=== PATIENT | male | born 1965 | race Caucasian/White ===

== ENCOUNTER 2018-09-22 22:36 | Observation (INO) ==
[2018-09-22] MEDS ORDERED: SODIUM CHLORIDE 0.9% 1,000 ML IV STA (23:44)
[2018-09-22] MEDS ORDERED: KETOROLAC 30 MG/1 ML VIAL IV STA (23:44)
[2018-09-22] MEDS ORDERED: PANTOPRAZOLE 40 MG VIAL IV STA (23:45)
[2018-09-23] LABS: Basophils # 0.1 10*3/uL (0.0-0.2); Eosinophils # 0.1 10*3/uL (0.0-0.87); Eosinophils % 1.6 % (0.00-10.9); Hematocrit 45.9 VOL% (42.0-52.0); Hemoglobin 15.8 GM/DL (14.0-18.0); Immature Granulocytes % 0.3 %; Immature Granulocytes Absolute 0.02 #; Lymphocytes # 0.9 10*3/uL (1.4-4.0); Lymphocytes % 13.7 % (21.2-54.2); Mean Corpuscular HGB Conc 34.4 GM/DL (32-36); Mean Corpuscular Volume 87.9 FL (87-102); Mean Platelet Volume 9.8 FL (9.6-12.0); Neutrophils % 77.4 % (38.7-73.9); Platelet Count 180 T/CUMM (130-400); Red Blood Count 5.22 MC/CUMM (3.8-5.5); Red Cell Distribution Width 11.9 % (9.3-17.3); White Blood Count 6.3 T/CUMM (4-12)
[2018-09-23 00:21] LABS: Albumin 4.2 G/DL (3.4-5.0); Calcium 9.4 MG/DL (8.5-10.1); Osmolality,Calculated 289.7 MOS/KG (273-304); Total Protein 6.8 G/DL (6.4-8.3)
[2018-09-23 02:25] LABS: Apearance,Urine CLEAR (Clear); Bilirubin,Urine Negative (Negative); Blood, Urine Negative (Negative); Glucose,Urine (UA) Negative (Negative); Ketones,Urine Negative (Negative); Mucus,Urine Occasional /LPF (Occasional); Nitrite,Urine Negative (Negative); Protein,Urine Negative; RBC,Urine 2 /HPF (0-4); Urine Color Yellow (Yellow); Urine Specific Gravity 1.055 (1.001-1.035); Urine Urobilinogen < 2.0 EU/DL (0.2-1.0); WBC,Urine <1 /HPF (0-6)
[2018-09-23] MEDS ORDERED: ACETAMINOPHEN 325 MG TABLET PO PRN (04:15)
[2018-09-23] MEDS ORDERED: PROMETHAZINE 25 MG/1 ML VIAL IM PRN (04:15)
[2018-09-23] MEDS ORDERED: ONDANSETRON 4 MG/2 ML VIAL IV PRN (04:15)
[2018-09-23] MEDS: HYDROmorphone 2 MG/1 ML VIAL IV PRN (05:10)
[2018-09-23] MEDS: PIPERACILLIN/TAZOBACTAM 3,375 MG in SODIUM CHLORIDE 0.9% 100 ML IV SCH ×3 (05:11→20:36)
[2018-09-23] MEDS: SODIUM CHLORIDE 0.9% 1,000 ML IV SCH ×2 (05:13→14:17)
[2018-09-24] MEDS: PIPERACILLIN/TAZOBACTAM 3,375 MG in SODIUM CHLORIDE 0.9% 100 ML IV SCH ×3 (03:45→20:25)
[2018-09-24] MEDS: SODIUM CHLORIDE 0.9% 1,000 ML IV SCH ×2 (03:54→16:18)
[2018-09-24 06:33] LABS: Basophils # 0.1 10*3/uL (0.0-0.2); Basophils % 0.9 % (0.0-0.8); Eosinophils # 0.3 10*3/uL (0.0-0.87); Eosinophils % 5.4 % (0.00-10.9); Hematocrit 41.6 VOL% (42.0-52.0); Hemoglobin 14.4 GM/DL (14.0-18.0); Immature Granulocytes % 0.2 %; Immature Granulocytes Absolute 0.01 #; Lymphocytes # 1.5 10*3/uL (1.4-4.0); Lymphocytes % 28.3 % (21.2-54.2); Mean Corpuscular HGB Conc 34.6 GM/DL (32-36); Mean Corpuscular Volume 88.1 FL (87-102); Mean Platelet Volume 10.6 FL (9.6-12.0); Monocytes % 7.8 % (1.7-12.7); Neutrophils % 57.4 % (38.7-73.9); Platelet Count 148 T/CUMM (130-400); Red Blood Count 4.72 MC/CUMM (3.8-5.5); White Blood Count 5.4 T/CUMM (4-12)
[2018-09-24 06:51] LABS: Albumin 3.1 G/DL (3.4-5.0); Bilirubin,Total 2.6 MG/DL (0.2-1.0); Calcium 8.6 MG/DL (8.5-10.1); Risk Ratio 2.18; Total Protein 5.7 G/DL (6.4-8.3); VLDL CHOLESTEROL 16.8 MG/DL
[2018-09-24 09:22] LABS: Bilirubin,Direct 0.22 MG/DL (0.0-0.20); Bilirubin,Indirect 2.9 MG/DL (0.0-1.0); Bilirubin,Total 3.1 MG/DL (0.2-1.0)
[2018-09-24] MEDS ORDERED: BUPIVACAINE MPF 0.25% 30 ML VIAL ONE (11:53)
[2018-09-24] MEDS ORDERED: LIDOCAINE 1%/EPI INJ 20 ML VIAL ONE (11:53)
[2018-09-24] MEDS ORDERED: TISSUE ADHESIVE 1 EACH APPLICATOR TOP ONE (12:12)
[2018-09-24] MEDS ORDERED: BUPIVACAINE 0.25% /EPI 10 ML VIAL ONE (12:12)
[2018-09-24] MEDS ORDERED: PROMETHAZINE INJ 25 MG in SODIUM CHLORIDE 0.9% 50 ML IV PRN (12:35)
[2018-09-24] MEDS ORDERED: ONDANSETRON 4 MG/2 ML VIAL IV PRN (12:35)
[2018-09-24] MEDS ORDERED: HYDROmorphone 2 MG/1 ML VIAL IV PRN (12:35)
[2018-09-24] MEDS ORDERED: MIDAZOLAM 2 MG/2 ML VIAL ONE (14:31)
[2018-09-24] MEDS ORDERED: PROPOFOL 200 MG/20 ML VIAL IV ONE (14:31)
[2018-09-24] MEDS ORDERED: ONDANSETRON 4 MG/2 ML VIAL ONE ×2 (14:32→14:35)
[2018-09-24] MEDS ORDERED: ACETAMINOPHEN 1,000 MG/100 ML VIAL IV ONE (14:32)
[2018-09-24] MEDS ORDERED: fentaNYL 100 MCG/2 ML VIAL ONE (14:32)
[2018-09-24] MEDS ORDERED: GLYCOPYRROLATE 0.4 MG/2 ML VIAL ONE (14:32)
[2018-09-24] MEDS ORDERED: DEXAMETHASONE 4 MG/1 ML VIAL ONE (14:32)
[2018-09-24] MEDS ORDERED: ROCURONIUM 100 MG/10 ML VIAL IV ONE (14:32)
[2018-09-24] MEDS ORDERED: LACTATED RINGERS 1,000 ML IV ONE (14:32)
[2018-09-24] MEDS ORDERED: NEOSTIGMINE 10 MG/10 ML VIAL ONE (14:33)
[2018-09-24] MEDS ORDERED: SEVOFLURANE 1 UNIT/15 MINUTE INH ONE (14:33)
[2018-09-24] MEDS ORDERED: MEPERIDINE 25 MG/1 ML VIAL ONE ×2 (14:35→14:52)
[2018-09-24] MEDS: MEPERIDINE 25 MG/1 ML VIAL IV PRN ×2 (14:45→14:55)
[2018-09-24] MEDS: ATORVASTATIN 40 MG TABLET PO SCH (16:19)
[2018-09-24] MEDS: HYDROmorphone 2 MG/1 ML VIAL IV PRN (18:05)
[2018-09-25] MEDS: PIPERACILLIN/TAZOBACTAM 3,375 MG in SODIUM CHLORIDE 0.9% 100 ML IV SCH (04:40)
[2018-09-25] MEDS: SODIUM CHLORIDE 0.9% 1,000 ML IV SCH (04:40)
[2018-09-25 05:25] LABS: Basophils % 0.3 % (0.0-0.8); Eosinophils % 0.2 % (0.00-10.9); Hematocrit 42.2 VOL% (42.0-52.0); Hemoglobin 14.4 GM/DL (14.0-18.0); Immature Granulocytes % 0.1 %; Immature Granulocytes Absolute 0.01 #; Lymphocytes # 0.9 10*3/uL (1.4-4.0); Lymphocytes % 10.6 % (21.2-54.2); Mean Corpuscular HGB Conc 34.1 GM/DL (32-36); Mean Corpuscular Volume 88.7 FL (87-102); Mean Platelet Volume 10.2 FL (9.6-12.0); Monocytes % 6.1 % (1.7-12.7); Neutrophils % 82.7 % (38.7-73.9); Platelet Count 160 T/CUMM (130-400); Red Blood Count 4.76 MC/CUMM (3.8-5.5); Red Cell Distribution Width 11.7 % (9.3-17.3); White Blood Count 8.7 T/CUMM (4-12)
[2018-09-25 05:59] LABS: Albumin 3.1 G/DL (3.4-5.0); Bilirubin,Total 3.3 MG/DL (0.2-1.0); Calcium 8.3 MG/DL (8.5-10.1); Osmolality,Calculated 274.5 MOS/KG (273-304); Total Protein 5.7 G/DL (6.4-8.3)
[2018-09-25 06:01] LABS: Albumin 3.1 G/DL (3.4-5.0); Bilirubin,Direct 0.2 MG/DL (0.0-0.20); Bilirubin,Indirect 3.6 MG/DL (0.0-1.0); Bilirubin,Total 3.8 MG/DL (0.2-1.0); Total Protein 5.7 G/DL (6.4-8.3)
[2018-09-25 08:25] VITALS: BP 111/60
[2018-09-25] MEDS: ATORVASTATIN 40 MG TABLET PO SCH (09:11)
== END 2018-09-25 10:55 | disposition home or self-care (01) ==
LOC: N.ED 22:36 → N.EDINP 22:36 → N.3E 09-23 03:41
PROVIDERS: ADMIT Internal Medicine; ATTEND Internal Medicine
PROC: LAPCHOL (2018-09-24 12:46)